=== PATIENT | male | born 1935 | race Caucasian/White ===

== ENCOUNTER 2017-08-07 06:36 | Observation (INO) | payer OTHER ==
[2017-08-07] VITALS (13 sets, daily range): BP systolic 116–148; BP diastolic 56–83
[~2017-08-07] VITALS: Ht 188 cm; Wt 83.1 kg
--- NOTE | ~2017-08-07 | H ---
[facility] [place] [address] HISTORY AND PHYSICAL Name: LORRIE WASHBURN Room #: 210-P [facility] Jennifer Holden#: [id number] Admission: 08/07/17 Attend Phys: Rosendo Tirana MD, Discharge: Date of : 36 Report #: [id number] THIS REPORT FOR: //name// CC: ELOISA physician/PCP Rosendo Triana DATE OF SERVICE: 08/07/2017 HISTORY OF PRESENT ILLNESS: The patient is an 82-year-old male known to myself. He was being considered for an elective admission for cardiac catheterization. During the night, developed some chest pressure, heaviness, congestion, which was very confusing as whether this was an anginal equivalent. He has had a prior bypass surgery in 1995 in [place] and recently moved here. He had diagonal stent placed at some point and then restenosis of an SVG to the RCA stent in 2008 and then redilated in 2014. There was also a CHAN to an LAD, which was intact to a diagonal and [place], filled the diagonal and the [place] circumflex from some limited records. Ejection fraction was near normal, mild aortic valve stenosis, there is question whether it could be a bicuspid valve, seems not likely at his age. In any event, he took some Robitussin DM and then developed significant left flank pain during the night consistent with a kidney stone, he has had a recent kidney stone. There has not been any imelda hematuria. He is afebrile. LABORATORY DATA: His lab work we ran stat, has a creatinine of 1.1, potassium 4.2. H and H is 14 and 41, white cell count is 8.4 and platelets 175. Liver function tests were normal. I have started IV fluids. He is in a moderate amount of distress. No pain medications yet. We are awaiting chest x-ray and CT noncontrast abdomen and pelvis, renal stone protocol. He had an abnormal nuclear stress test, the reason for that was we are attempting to repeat or obtain a cardiac catheterization. MEDICATIONS: Baby aspirin, Celebrex, Plavix 75, CoQ10, lisinopril, levothyroxine, metoprolol 25, multivitamins, pravastatin 40. PAST MEDICAL HISTORY: Positive for coronary artery disease with bypass surgery and subsequent stent placement to an LAD and SVG to RCA, last intervention 2014, preserved LV function. Hypertension, hypercholesterolemia, degenerative joint disease, paroxysmal atrial fibrillation, left carotid bruit, diabetes. FAMILY HISTORY: Mother had kidney failure, his father had coronary artery disease prematurely. He is accompanied by his son who lives here. SOCIAL HISTORY: He has never smoked, couple of drinks a week. He recently moved here from [place]. He is independent. He is retired. ALLERGIES: ZETIA. [facility] [address] [place] [address] HISTORY AND PHYSICAL Name: LORRIE WASHBURN Room #: 210-P [facility] Jennifer Holden#: [id number] Admission: 08/07/17 Attend Phys: Rosendo Triana MD, Discharge: Date of : 36 Report #: [id number] PHYSICAL EXAMINATION: VITAL SIGNS: Pulse is 50s, blood pressure 136/80. HEENT: Eyes reveal xanthelasmas. Pharynx is clear. NECK: Shows preserved upstrokes without JVD or bruits. LUNGS: Clear. CARDIOVASCULAR: Regular rate and rhythm, S1, S2, bradycardic, there is a systolic ejection murmur at upper right sternal border. ABDOMEN: Soft. No HSM or abdominal bruit. EXTREMITIES: Reveal trace of edema. Pulses were intact. NEUROLOGIC: Nonfocal. SKIN: Warm and dry without xanthoma or ulcer. MUSCULOSKELETAL: No gross joint deformity. ASSESSMENT: 1. Coronary artery disease with abnormal nuclear test and now recurrent chest pain, currently resolved. 2. Severe left flank pain consistent with possible acute nephrolithiasis, history of kidney stone. 3. Hypertension. 4. Hypercholesterolemia. 5. Diabetes. 6. Degenerative joint disease. 7. Mild aortic valve stenosis. RECOMMENDATIONS AND PLAN: We will await the CT scan, IV fluids, pain control, admit to the CCU, rule out an ischemic event. Initial troponin was negative. We will have Urology consult. Would hold off on cardiac catheterization until we can delineate the etiology of this left flank pain. He is pain free at this time, cardiac lovett or chest pain lovett. There is a moderate area of reversible ischemia in the mid apical and anterior apical ventricle consistent with his LAD distribution, so question of a CHAN to LAD area. We will await Urology consult and CT results. <ELECTRONICALLY SIGNED> By: Rosendo Triana MD, FACC 08/08/17 0844 0809 0904 Rosendo Triana MD, FACC /nt
--- NOTE | ~2017-08-07 | EKG ---
[address] [address] ELECTROCARDIOGRAM REPORT Name: LORRIE WASHBURN Room #: 210-P [facility] M.R.#: [id number] Admission: 08/07/17 Attend Phys: Rosendo Triana MD, Discharge: Date of : 36 Report #: [id number] THIS REPORT FOR: //name// [facility] Test Date: 2017-08-07 Test Time: 12:41:11 Pat Name: LORRIE WASHBURN Department: Room: 210 P Gender: M Chief Yeoman: Mindi PERRY : 1935 Requested By: Rosendo Triana Order Number: [id number] MD: Chaka Hamilton Measurements Intervals [place] Rate: 68 P: 69 [place]: 195 QRS: 158 QRSD: 146 T: -28 QT: 454 QTc: 483 Interpretive Statements Sinus rhythm lbbb Anterior infarct, old Electronically Signed On 08-07-2017 22:38:35 MARINE STRUCTURAL WELDER by Chaka Hamilton [email or web address] <ELECTRONICALLY SIGNED> By: Chaka Hamilton MD 08/07/17 2238 1241 1241 Chaka Hamilton MD /PARMJIT
--- NOTE | ~2017-08-07 | CATHLAB ---
[facility] [address] [place] [address] INVASIVE PROCEDURE REPORT Name: LORRIE WASHBURN Room #: 210-P [facility] .R.#: [id number] Admission: 08/07/17 Attend Phys: Rosendo Triana, Discharge: 08/08/17 Date of : 36 Date of Service: 08/08/17 1125 Report #: [id number] THIS REPORT FOR: //name// APPROVED REPORT Patient Details Patient Status: Out-Patient Room #: The patient is a 82 year-old male Event Personnel Rosendo Triana Manufacturing Lab Technician, Ta Duncan RN, Cora Nichole CVT Monitor, Kristen Velasquez Scrub Procedures Performed Art Access - R femoral artery* Hemostasis w/ Mynx Left Heart Cath Coronaries, Bypass Grafts 1953998 LHCCORCABG Abdominal Aortography 669052 JOVON Place w/wo Plasty Single LAD 274376 61047 Initial Mod Sed Same Phys/QHP Gr5y 887163 29203 Mod Sed Same Phys/QHP Ea 910731 Procedure Narrative The patient was brought electively to the Cardiac Catheterization Laboratory and was prepped and draped in a sterile manner. The Right Groin^ was infiltrated with subcutaneous anesthesia. A PINNACLE 6FR Sheath #[id number] sheath was inserted into the RFA 6fr^. Coronary angiography was performed using coronary diagnostic catheters. The right coronary system was accessed and visualized with a JR 4 catheter. The left coronary system was accessed and visualized with a JL 4 catheter. The left ventricle was accessed and visualized with a Pigtail catheter. Left ventricular/Aortic Valve gradient assessed via catheter pullback. Left ventriculogram was performed in 30 degree projection. An aortogram of the abdominal aorta was performed. Closure device was deployed with a 6 Fr Mynx. The patient tolerated the procedure well and there were no complications associated with the procedure. There was no hematoma. Intraoperative Conscious Sedation Sedation start time: 08:47 Case end Time: 09:34 Fentanyl 50.0 mcg Versed 1.5 mg Fluoro Time: 11.50 minutes Dose: DAP 1682.00 cGycm2 1682 mGy Contrast Type and Amount: Omnipaque 225 ml [facility] [address] [place] [address] INVASIVE PROCEDURE REPORT Name: LORRIE WASHBURN Room #: 210-P [facility] ..#: [id number] Admission: 08/07/17 Attend Phys: Rosendo Triana, Discharge: 08/08/17 Date of : 36 Date of Service: 08/08/17 1125 Report #: [id number] Hemodynamics The aortic pressure is 177/82 mmHg with a mean of 89 mmHg. The left ventricular pressure is 177/5 mmHg with a mean of mmHg. The left ventricular end diastolic pressure is 19 mmHg. PCI Technique Lesion Anticoagulation was achieved with Heparin. Percutaneous coronary intervention was performed on the proximal left anterior descending artery segment. A LAUNCHER 6FR EBU 4 #[id number] Guide Catheter was used to engage the Left Main ostium. A Luge Wire .014 x 182CM #[id number] Interventional Guidewire was used to cross the lesion. BALLOON DILATION A Balloon catheter Mozec NC 2.25 x 8 was inserted and inflated up to 15.00atm for 26seconds. Additional Inflation: 16.00atm for 18seconds. STENT DEPLOYMENT A drug-eluting stent RESOLUTE OTW 2.5 X 8 #[id number] was inserted and inflated up to 14.00atm for 24seconds. Additional Inflation: 16.00atm for 17seconds. Conclusion #1 successful PTCA stent drug-eluting of the ostial LAD 95% to 20% filling extensive diagonal system. Mid LAD occludes is filled via the CHAN graft #2 CHAN to LAD is intact with minimal irregularity mild diseases this extends to the apex #3 circumflex OM is nondominant moderate size distribution with mild irregularities in proximal calcification. No high-grade disease noted #4 king salmon right coronary dominant occludes in the mid vessel at prior stents. #5 SVG to PDA is intact distal stents are noted eccentric 70-75% lesion distal to the PDA stents after the anastomosis and proximal to the bifurcation of follow this closely (this was not ischemic on the nuclear test) #6 normal left ventricular size with subtle anterior lateral wall leg EF 50-55% #7 abdominal aorta is mildly ectatic no aneurysm left renal artery has a 4050% eccentric lesion single right renal artery widely patent Recommendations plan continue aggressive risk factor modification [facility] [address] [place] [address] INVASIVE PROCEDURE REPORT Name: LORRIE WASHBURN Room #: 210-P [facility] M.R.#: [id number] Admission: 08/07/17 Attend Phys: Rosendo Triana, Discharge: 08/08/17 Date of : 36 Date of Service: 08/08/17 1125 Report #: [id number] dual antiplatelet therapy indefinitely. Has been previously on. No lifting for 48 hours to line tub [facility] or [facility] for a week signed <ELECTRONICALLY SIGNED> By: Rosendo Triana MD, FACC 08/08/17 1125 1125 112 Rosendo Triana MD, FACC /INF
--- NOTE | ~2017-08-07 | EKG ---
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: GR : 1935 Requested By: Rosendo Triana Order Number: [id number] MD: Ritchie Mullins Measurements Intervals [place] Rate: 51 P: 76 ID: 199 QRS: 159 QRSD: 146 T: 61 QT: 460 QTc: 424 Interpretive Statements Sinus rhythm Left bundle branch block Compared to ECG 08/07/2017 12:41:11 No significant change was found Electronically Signed On 08-08-2017 8:10:58 VEHICLE MAINTENANCE SUPERVISOR by Ritchie Mullins [email or web address] <ELECTRONICALLY SIGNED> By: Ritchie Mullins MD, [facility] 08/08/17 0810 2 2 Ritchie Mullins MD, [facility] /EPI
--- NOTE | ~2017-08-07 | EKG ---
[place] [address] [address] [facility] [place] [address] ELECTROCARDIOGRAM REPORT Name: LORRIE WASHBURN Room #: REG [facility]#: [id number] Admission: 08/07/17 Attend Phys: Rosendo Triana MD, Discharge: Date of : 36 Report #: [id number] THIS REPORT FOR: //name// [facility] Test Date: 2017-08-07 Test Time: 07:14:58 Pat Name: LORRIE WASHBURN Department: Room: Gender: M Supervisor Sunglasses: : 1935 Requested By: Rosendo Triana Order Number: [id number] MD: Ritchie Mullins Measurements Intervals [place] Rate: 54 P: 26 IN: 192 QRS: 195 QRSD: 146 T: 78 QT: 442 QTc: 419 Interpretive Statements Sinus bradycardia Left bundle branch block Baseline wander in lead(s) V3 No previous ECG available for comparison Electronically Signed On 08-07-2017 9:10:43 DELIVERY MERCHANDISER by Ritchie Mullins [email or web address] <ELECTRONICALLY SIGNED> By: Ritchie Mullins MD, [facility] 08/07/17909 3 3 Ritchie Mullins MD, FACC /EPI
--- NOTE | ~2017-08-07 | D ---
[facility] [place] [address] DISCHARGE SUMMARY Name: LORRIE WASHBURN Room #: 210-P [facility] Jennifer Holden#: [id number] Admission: 08/07/17 Attend Phys: Rosendo Triana MD, Discharge: Date of : 36 Report #: [id number] THIS REPORT FOR: //name// CC: [facility] physician/PCP Rosendo Triana [facility] COURSE: The patient is an 82-year-old male who was going to be admitted for elective catheterization, developed some acute left flank pain the night prior to the admission consistent with prior kidney stone which he had had. I had initially held off on the procedure and had urology evaluation, CT noncontrast looking for renal stone, there was no findings. Also had some recurrent chest pain which had been stable angina and had some rest pain that night with flank pain. She was taken to the catheterization lab eventually, which had a high grade subtotal proximal LAD, which then occluded. The CHAN to the LAD was intact, but the LAD proximally was filling an extensive diagonal system and this was not protected. I dilated and stented just off of the left main with a 2.5 x 9 Resolute drug-eluting stent 2.8 mm. I should note the [place] circumflex was intact, not bypassed and then the graft to the PDA was intact with stents patent and then distal to the stents in the PDA was a 70% lesion which we will follow and may need intervention at some point, but was not showing evidence of inferior wall ischemia. The nuclear test had revealed extensive anterior lateral wall, which was consistent with the diagonal system, which was stented. He will be discharged to home on his home medications. He is up, he feels well. Troponin was 0.2. No change in creatinine. Hemoglobin was stable. He is up and ambulating without any issues. He will be discharged to home. He will be discharged aspirin and Plavix, Celebrex p.r.n., CoQ10, levothyroxine, lisinopril 5, metoprolol 25, multivite and pravastatin 40. No MRI or dental work for 3 months. No lifting for 48 hours. DISCHARGE DIAGNOSES: 1. Coronary artery disease with successful stent placement, stated above, prior bypass. 2. Hypertension. 3. Hypercholesterolemia. 4. Diabetes. 6. Paroxysmal atrial fibrillation. I should note he is also on insulin therapy for his diabetes. He has moved here from [place] recently. He has been referred to Dr. Ascencio. By: 0818 0849 Rosendo Triana MD, FACC /nt
[~2017-08-07 06:36] MED LIST: ASPIR 8181 MG PO; CELEBREX 200 M200 M1 PO; CENTRUM SILVER1 EAC4 PO; CO-ENZYME Q-1010 MG PO; LEVOXYL137 MCG PO; LISINOPRIL5 MG PO; NITROGLYCERIN0.4 MG PO; PLAVIX 75 MG TA75 M1 PO; PRAVACHOL40 MG PO; TOPROL XL25 MG PO
[2017-08-07 07:25] LABS: HEMATOCRIT 41.6 % (42.0-52.0); HEMOGLOBIN 14.1 gm/dL (14.0-18.0); MCH 31.8 pg (26.0-34.0); MCV 93.4 fL (80.0-100.0); RBC 4.45 mil/uL (4.50-6.00); RDW 13.3 % (10.5-14.5); WBC 8.4 thou/uL (4.0-11.0)
[2017-08-07 07:34] LABS: CALCIUM 9.2 mg/dL (8.5-10.1); CREATININE 1.1 mg/dL (0.7-1.3); POTASSIUM 4.2 mmol/L (3.5-5.1)
[2017-08-07 07:50] LABS: ALBUMIN 3.8 g/dL (3.4-5.0); TOTAL BILIRUBIN 0.9 mg/dL (<0.1-1.0); TOTAL PROTEIN 6.8 g/dL (6.4-8.2)
[2017-08-07 08:54] LABS: URINE BILIRUBIN NEGATIVE (Negative); URINE BLOOD TRACE (Negative); URINE COLOR YELLOW; URINE GLUCOSE-RANDOM* NEGATIVE (Negative); URINE KETONES NEGATIVE (Negative); URINE NITRITE NEGATIVE (Negative); URINE PROTEIN (DIPSTICK) NEGATIVE (Negative); URINE UROBILINOGEN 0.2 E.U./dl (0.2-1.0)
[2017-08-07] MEDS ORDERED: ASPIRIN325 PO (17:04)
[2017-08-08 03:43] VITALS: BP 144/78
[2017-08-08 04:03] LABS: HEMATOCRIT 40.6 % (42.0-52.0); HEMOGLOBIN 13.9 gm/dL (14.0-18.0); MCH 31.9 pg (26.0-34.0); MCHC 34.1 g/dL (28.0-37.0); MCV 93.5 fL (80.0-100.0); RBC 4.34 mil/uL (4.50-6.00); RDW 13.2 % (10.5-14.5); WBC 10.5 thou/uL (4.0-11.0)
[2017-08-08 04:20] LABS: ANION GAP 8 mmol/L (7-16); BUN 19 mg/dL (7-18); CALCIUM 8.7 mg/dL (8.5-10.1); CHLORIDE 105 mmol/L (98-107); CHOLESTEROL 140 mg/dL (<200); CO2 27 mmol/L (21-32); CREATININE 1.2 mg/dL (0.7-1.3); GLUCOSE 140 mg/dL (74-106); HDL CHOLESTEROL 42 mg/dL (>40); LDL CHOLESTEROL 78 mg/dL (<100); POTASSIUM 4.2 mmol/L (3.5-5.1); SODIUM 140 mmol/L (136-145); TC:HDL 3.3 Ratio (Not establshd); TRIGLYCERIDE 101 mg/dL (<150); TROPONIN-I 0.26 ng/mL (<0.06); VLDL 20 mg/dL (<40)
[2017-08-08 04:22] LABS: SERUM ASSESSMENT Clear
[2017-08-08 07:37] VITALS: BP 137/77
[2017-08-08 08:56] VITALS: BP 137/77
== END 2017-08-08 10:35 | disposition home or self-care (01) ==
LOC: CATH 06:36 → 2N 10:18 → CATH 12:48 → 2N 08-08 10:35
PROVIDERS: Internal Medicine Cardiovascular Disease
DX: I25.10 Atherosclerotic heart disease of native coronary artery without angina pectoris (principal); R94.39 Abnormal result of other cardiovascular function study; R10.9 Unspecified abdominal pain; I10 Essential (primary) hypertension; E78.00 Pure hypercholesterolemia, unspecified; E11.9 Type 2 diabetes mellitus without complications; M19.90 Unspecified osteoarthritis, unspecified site; I35.0 Nonrheumatic aortic (valve) stenosis; I48.0 Paroxysmal atrial fibrillation; Z95.1 Presence of aortocoronary bypass graft; Z79.4 Long term (current) use of insulin

== ENCOUNTER 2017-10-18 15:10 | Observation (INO) | payer OTHER ==
[~2017-10-18] VITALS: Ht 188 cm; Wt 83.9 kg
--- NOTE | ~2017-10-18 | EKG ---
[address] [address] ELECTROCARDIOGRAM REPORT Name: LORRIE WASHBURN Room #: 170-11 [facility] M..#: [id number] Admission: 10/18/17 Attend Phys: Quentin Shipman MD Discharge: Date of : 36 Report #: [id number] THIS REPORT FOR: //name// [facility] ED Test Date: 2017-10-18 Test Time: 15:16:48 Pat Name: LORRIE WASHBURN Department: Room: 170 Gender: M Licensed Marriage And Family Therapist: THEO : 1935 Requested By: Shai Alba Order Number: [id number] MD: Chaka Hamilton Measurements Intervals [place] Rate: 59 P: 42 [place]: 202 QRS: 219 QRSD: 142 T: 100 QT: 408 QTc: 405 Interpretive Statements Sinus rhythm Lbbb Electronically Signed On 10-18-2017 16:54:25 DIRECTOR OF MOBILE MARKETING by Chaka Hamilton [email or web address] <ELECTRONICALLY SIGNED> By: Chaka Hamilton MD 10/18/17 1654 1516 1516 Chaka Hamilton MD /PARMJIT
--- NOTE | ~2017-10-18 | HC ---
[facility] [place] [address] CONSULTATION Name: LORRIE WASHBURN Room #: 444-P [facility] Holden#: [id number] Admission: 10/18/17 Attend Phys: Quentin Shipman MD Discharge: 10/19/17 Date of : 36 Report #: [id number] THIS REPORT FOR: //name// CC: EUSEBIO Shipman HISTORY OF PRESENT ILLNESS: The patient is an 82-year-old male, he is well known to myself. He recently moved here from [place]. However, I did place an ostial LAD stent in July of this last year, just 2 months ago to his ostial LAD. He had mild circ disease, otherwise LAD disease of a moderate nature and then a vein graft to the distal right PDA that had a 70% eccentric distal lesion, which we have been following. He has actually done much better in the last 2 months since the stent was placed in the ostial LAD. No recurrent chest pain or pressure. He had an episode while walking today, walking his dog and he was not really exerting much he stated, but it was described as a sharp pain, which radiated to the side of his neck. This was not consistent with his prior anginal pain. He then had some lightheadedness and some slight ataxia, although he was a very poor historian regarding this. Did not really sound vertiginous. He has recently completed a 3-week course of antibiotics for some recurrent cough, cold, and congestion and there has been a fair amount of coughing. This is a first real exertion he has done in a while. He is pain free tonight. His troponin is negative. CURRENT MEDICATIONS: Baby aspirin, Celebrex, Plavix, CoQ10, levothyroxine, lisinopril 5, Toprol 25, MultiVites, and pravastatin 40. PAST MEDICAL HISTORY: Positive for coronary artery disease, prior bypass surgery in 2003, stent placement in 2008, stent to the right in 2014 and then most recently an ostial LAD stent 2 months ago. Also, he has polymyalgia rheumatica, history of ischemic colitis, history of thyroid cancer, hypertension, hypercholesterolemia, mild carotid disease, Doppler was done in June; and DJD. SOCIAL HISTORY: No current alcohol or tobacco. He is . He lives here independently. He has three children. He is retired. FAMILY HISTORY: Mother had kidney failure. Father had some heart failure, but no real premature disease. REVIEW OF SYSTEMS: Essentially negative except for some occasional arthritis pains and some nocturia. His EKG reveals sinus bradycardia, delayed R-waves, intraventricular conduction, incomplete left bundle essentially. LABORATORY WORK: Sodium 140, potassium 4.4, and creatinine 1.2. Troponin is negative. H and H is 14 and 41, white count 8.2. A CT of the head is [address] [address] CONSULTATION Name: LORRIE WASHBURN Room #: 444-P [facility] Jennifer MFermin#: [id number] Admission: 10/18/17 Attend Phys: Quentin Shipman MD Discharge: 10/19/17 Date of : 36 Report #: [id number] unremarkable. When he clarify, he has recent carotid Dopplers, which have less than 40% bilaterally. This does not need to be repeated. PHYSICAL EXAMINATION: GENERAL: Pleasant and alert. VITAL SIGNS: Blood pressure was 110/60, pulse was 60 and regular. HEENT: Eyes showed xanthelasmas. Pharynx was clear. NECK: Shows preserved upstrokes without JVD or bruits. LUNGS: Clear. CARDIAC: Regular rate and rhythm S1, S2, without significant murmur or gallop. ABDOMEN: Soft. No HSM or abdominal bruit. EXTREMITIES: Show no edema. Distal pulses were intact. NEUROLOGIC: Nonfocal. SKIN: Warm and dry without xanthoma or ulcer. MUSCULOSKELETAL: Generalized arthritic changes. ASSESSMENT: 1. Chest pain, negative troponin. I suspect this is noncardiac, underlying coronary disease. He was scheduled fairly soon for nuclear stress testing, we will proceed with that in the a.m. The dizziness and vertigo essentially resolved. Carotids were widely patent 3 months ago in the office, I suspect may have been some transient inner ear hypotension. His pressure was 102, I would hold the TAMEKA inhibitor for now. History of hypertension and history of hypercholesterolemia. 2. Paroxysmal atrial fibrillation, although there has been no recent recurrence and he is not anticoagulated. 3. History of coronary artery bypass graft in 2003. 4. Diet controlled diabetes. 5. Hypothyroidism. 6. Remote history of deep venous thrombosis. RECOMMENDATIONS AND PLAN: I would not perform serial enzymes, this does not appear at this point they would turn positive. I would proceed with a nuclear stress test in the morning. Carotid Dopplers were done 3 months ago, did not need to repeat. Apparently, there has been an MRI of the head done that is pending. He is alert, oriented and completely asymptomatic at this time. I would hold the TAMEKA inhibitor and may need to back down based on the fact that he has had some transient hypotension. Also, if there is some question of some recurrent bronchitis or not incompletely treated viral syndrome. Although, clinically he does not appear to be sick and the chest x-ray was reviewed, which shows no concerning findings. I suspect we can proceed with nuclear testing, we will discuss with primary, if that is negative, I suspect we could discharge shortly thereafter. [facility] [address] [place] [address] CONSULTATION Name: LORRIE WASHBURN Room #: 444-P [facility] Holden#: [id number] Admission: 10/18/17 Attend Phys: Quentin Shipman MD Discharge: 10/19/17 Date of : 36 Report #: [id number] Thank you for asking me to assist in the care of this patient. <ELECTRONICALLY SIGNED> By: Rosendo Triana MD, FACC 10/25/17 2139 1943 0827 Rosendo Triana MD, FACC /nt
[~2017-10-18 15:10] MED LIST changes: +ASPIRIN325 PO
[2017-10-18 15:12] VITALS: BP 102/62
[2017-10-18 15:58] LABS: ABSOLUTE NEUTROPHILS 5.6 thou/uL (1.4-8.2); BASOPHILS 0.9 % (0.0-2.0); EOSINOPHILS 3.3 % (0.0-3.0); HEMATOCRIT 40.6 % (42.0-52.0); LYMPHOCYTES 17.4 % (24.0-44.0); MCH 31.9 pg (26.0-34.0); MCHC 34.5 g/dL (28.0-37.0); MCV 92.4 fL (80.0-100.0); MONOCYTES 9.9 % (1.0-8.0); PLATELET COUNT 195 thou/uL (150-400); POLYS 68.5 % (36.0-66.0); RBC 4.39 mil/uL (4.50-6.00); RDW 13.2 % (10.5-14.5); WBC 8.2 thou/uL (4.0-11.0)
[2017-10-18 16:09] LABS: ANION GAP 8 mmol/L (7-16); BUN 25 mg/dL (7-18); CHLORIDE 106 mmol/L (98-107); CO2 26 mmol/L (21-32); CREATININE 1.2 mg/dL (0.7-1.3); GLUCOSE 104 mg/dL (74-106); POTASSIUM 4.4 mmol/L (3.5-5.1); SODIUM 140 mmol/L (136-145)
[2017-10-18 16:18] LABS: ALBUMIN 3.6 g/dL (3.4-5.0); SGOT 42 U/L (15-37); SGPT 55 U/L (30-65); TOTAL BILIRUBIN 0.6 mg/dL (<0.1-1.0); TOTAL PROTEIN 6.4 g/dL (6.4-8.2); TROPONIN-I < 0.04 ng/mL (<0.06)
[2017-10-18] MEDS ORDERED: PRINIVIL20 MG PO (16:30)
[2017-10-18] MEDS ORDERED: SYNTHROID150 MCG PO (16:30)
[2017-10-18] MEDS ORDERED: GLUCOSAMINE HC500 MG PO (16:31)
[2017-10-18] MEDS ORDERED: CO Q-10100 MG PO (16:31)
[2017-10-18 17:21] VITALS: BP 129/60
[2017-10-18 17:29] VITALS: BP 147/64
[2017-10-18 19:38] VITALS: BP 161/75
[2017-10-19 04:14] LABS: HEMATOCRIT 40.2 % (42.0-52.0); HEMOGLOBIN 13.9 gm/dL (14.0-18.0); MCH 32.1 pg (26.0-34.0); MCHC 34.7 g/dL (28.0-37.0); MCV 92.6 fL (80.0-100.0); RBC 4.34 mil/uL (4.50-6.00); RDW 13.1 % (10.5-14.5); WBC 8.4 thou/uL (4.0-11.0)
[2017-10-19 04:18] VITALS: BP 119/63
[2017-10-19 04:26] LABS: ANION GAP 9 mmol/L (7-16); BUN 20 mg/dL (7-18); CALCIUM 8.9 mg/dL (8.5-10.1); CHLORIDE 107 mmol/L (98-107); CO2 28 mmol/L (21-32); CREATININE 1.2 mg/dL (0.7-1.3); GLUCOSE 105 mg/dL (74-106); POTASSIUM 4.2 mmol/L (3.5-5.1); SODIUM 144 mmol/L (136-145); TROPONIN-I < 0.04 ng/mL (<0.06)
[2017-10-19 08:04] VITALS: BP 149/75
[2017-10-19 10:36] VITALS: BP 149/75
[2017-10-19 14:14] VITALS: BP 149/75
== END 2017-10-19 15:00 | disposition home or self-care (01) ==
LOC: ER 15:10 → EROBS 16:37 → 4S 16:37
PROVIDERS: Emergency Medicine; Hospitalist; Physician Assistant
DX: I25.10 Atherosclerotic heart disease of native coronary artery without angina pectoris (principal); I10 Essential (primary) hypertension; E78.5 Hyperlipidemia, unspecified; E11.9 Type 2 diabetes mellitus without complications; I48.0 Paroxysmal atrial fibrillation; M19.90 Unspecified osteoarthritis, unspecified site; E89.0 Postprocedural hypothyroidism; R42 Dizziness and giddiness; Z86.718 Personal history of other venous thrombosis and embolism; Z95.5 Presence of coronary angioplasty implant and graft; Z95.1 Presence of aortocoronary bypass graft; E78.00 Pure hypercholesterolemia, unspecified; Z85.850 Personal history of malignant neoplasm of thyroid

== ENCOUNTER → 2019-06-12 | Outpatient (CLI) | payer OTHER ==
[~2019-06-12] MED LIST changes: +CO Q-10100 MG PO; +GLUCOSAMINE HC500 MG PO; +PRINIVIL20 MG PO; +SYNTHROID150 MCG PO
== END ==
LOC: NUC 07:22
DX: R07.9 Chest pain, unspecified (principal); I25.10 Atherosclerotic heart disease of native coronary artery without angina pectoris; I48.91 Unspecified atrial fibrillation; E11.9 Type 2 diabetes mellitus without complications; I10 Essential (primary) hypertension; E78.5 Hyperlipidemia, unspecified; Z79.899 Other long term (current) drug therapy

== ENCOUNTER 2019-07-01 06:00 | Observation (INO) | payer OTHER ==
[~2019-07-01] VITALS: Ht 185.4 cm; Wt 84.9 kg
[2019-07-01 07:00] VITALS: BP 146/84
[2019-07-01] MEDS ORDERED: NITROGLYCERIN0.4 MG SUBLING (07:12)
[2019-07-01] MEDS ORDERED: XARELTO20 MG PO (07:12)
[2019-07-01 07:15] LABS: HEMATOCRIT 33.6 % (42.0-52.0); MCH 30.9 pg (26.0-34.0); MCHC 32.8 g/dL (28.0-37.0); RBC 3.57 mil/uL (4.50-6.00); RDW 14.5 % (10.5-14.5); WBC 7.5 thou/uL (4.0-11.0)
[2019-07-01 07:34] LABS: CALCIUM 8.8 mg/dL (8.5-10.1); CREATININE 1.2 mg/dL (0.7-1.3)
--- NOTE | 2019-07-01 08:05 | EKG ---
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 <ELECTRONICALLY SIGNED> By: Ritchie Mullins MD, [facility] 07/01/1904 3 3 Ritchie Mullins MD, [facility] /EPI
[2019-07-01 10:42] VITALS: BP 143/94
[2019-07-01 11:52] VITALS: BP 134/91
--- NOTE | 2019-07-01 13:15 | NUR ---
ASSUMED CARE OF PT AT 11:50, REC REPORT AROUND 1215, VS DONE ORDERED, SEE DATA FLOW SHEET, R GROIN SITE CDI NO HEMATOMA, SOFT, NO DRAINAGE OF BLOOD. PT DENIES ANY NEEDS/PAIN AT THIS TIME. A&0X4, IS NOT IMPULSIVE. NO ORDERS ON HOW LONG PT IS TO HAVE BEDREST, RN HERE ON THE FLOOR WHO GAVE ME REPORT STATED ROUTE AGENT STATED THREE HOURS WITH HEMOSTASIS ACHIEVED AT 0930. HE WAS UP HAVING FINISHED HIS LUNCH, URINAL AT BEDSIDE. AFIB ON MONITOR, ONE STRIP LOOKED LIKE ST WITH REGULAR RATE AND PWAVES YET NOW AFIB. WILL CONTINUE W/VS HOURLY X 4 AND WALK WITH PT TO RESTROOM WHEN HE CALLS OUT. GAVE INSTRUCTION, POSSIBLY REDUNDANT, ON STILL COMPRESSING SITE WITH HIS NEW COUGH. STATES HE DIDN'T HAVE IT PRIOR TO PROCEDURE. ENCOURAGED HYDRATION. IVF RUNNING. SON SLATED TO RETURN.
[2019-07-01 15:39] VITALS: BP 136/87
--- NOTE | 2019-07-01 17:29 | CATHLAB ---
[facility] [address] [place] [address] INVASIVE PROCEDURE REPORT Name: LORRIE WASHBURN Room #: 214-P [facility] IN M.R.#: [id number] Admission: 07/01/19 Attend Phys: Rosendo Triana, Discharge: Date of : 37 Report #: [id number] THIS REPORT FOR: //name// APPROVED REPORT Study performed: 07/01/2019 07:21:44 Patient Details Patient Status: Out-Patient Room #: The patient is a 83 year-old male Event Personnel Rosendo Triana Lap Layer, Ta Duncan RN, Lorrie Noriega Monitor, Ruth Irene RTR Scrub, Brandi Samuel RN clinical data management manager Performed Left Heart Cath Coronaries, Bypass Grafts [id number] LHCCORCABG JOVON Revasc Graft Single RCA C9604 SVGREVSING Indication Chest pain Procedure Narrative The Right Groin^ was infiltrated with 1% Lidocaine subcutaneous anesthesia. A PINNACLE 6FR Sheath #[id number] sheath was inserted into the RFA^. Coronary angiography was performed using coronary diagnostic catheters. The right coronary system was accessed and visualized with a JR4 catheter. The left coronary system was accessed and visualized with a JL4 catheter. The left ventricle was accessed and visualized with a PIGTAIL catheter. Left ventricular/Aortic Valve gradient assessed via catheter pullback. Left ventriculogram was performed in 30 degree projection. Closure device was deployed with a 6 Fr MYNXGRIP 6/7F #[id number]. The patient tolerated the procedure well and there were no complications associated with the procedure. There was no hematoma. NATASHAB/DUSTIN VISUALIZED Intraoperative Conscious Sedation Sedation start time: 8.44 Case end Time: 9.41 Fentanyl 100 mcg Versed 1 mg Fluoro Time: 8.58 minutes Dose: DAP 13552.00 cGycm2 1504 mGy Contrast Type and Amount: Visipaque 180 ml [facility] [place] [address] INVASIVE PROCEDURE REPORT Name: LORRIE WASHBURN Room #: 214-P [facility] IN M.R.#: [id number] Admission: 07/01/19 Attend Phys: Rosendo Triana, Discharge: Date of : 37 Report #: [id number] Hemodynamics The aortic pressure is 136/74 mmHg with a mean of 87 mmHg. The left ventricular pressure is 135/9 mmHg with a mean of mmHg. The left ventricular end diastolic pressure is 22 mmHg. There was no gradient across the aortic valve upon pullback. Pullback from the left ventricle to the aorta revealed no gradient across the aortic valve. PCI Technique Lesion A LAUNCHER 6FR RCB #[id number] Guide Catheter was used to engage the ostium. A Luge Wire .014 x 182CM #[id number] Interventional Guidewire was used to cross the lesion. BALLOON DILATION A Balloon catheter Sprinter OTW 2.5 x 12 #[id number] was inserted and inflated up to 14atm for 28seconds. Additional Inflation: 16atm for 14seconds. STENT DEPLOYMENT A drug-eluting stent XIENCE PATSY RX 2.5 X 12 #[id number] was inserted and inflated up to 18atm for 26seconds. Additional Inflation: 20atm for 21seconds. PCI Technique Lesion 2 Percutaneous Coronary Intervention was performed on the Unspecified. Conclusion #1 successful PTCA stent of 8 PDA to 90% eccentric lesion through and SVG with placement of a 27 5 x 12 Patsy drug-eluting stent 0% residual #2 left main short free of disease giving rise to LAD and circumflex #3 LAD is occluded proximally. There is an ostial stent that fills a moderate diagonal system which remains patent the ostial stent 50% in-stent restenosis #4 CHAN to LAD is intact with minimal irregularity the LAD extends around the apex #5 circumflex OM is intact and mildly diseased. #6 SVG to the OM is occluded #7 [place] right coronary artery is occluded and filled via the vein graft to the PDA that was stented #8 normal left ventricular size and systolic function EF lower limits of normal 50% range Remissions and plan: Continue aggressive risk factor modification [address] [address] INVASIVE PROCEDURE REPORT Name: LORRIE WASHBURN Room #: 214-P [facility] IN M.R.#: [id number] Admission: 07/01/19 Attend Phys: Rosendo Triana, Discharge: Date of : 37 Report #: [id number] dual antiplatelet therapy. Patient hemodynamically stable transfer to the CCU to follow stent protocol. <ELECTRONICALLY SIGNED> By: Rosendo Triana MD, FACC 07/01/191728 28 28 Rosendo Triana MD, FACC /INF
[2019-07-01 20:21] VITALS: BP 147/84
[2019-07-02 04:04] LABS: ALBUMIN 3.1 g/dL (3.4-5.0); CALCIUM 8.5 mg/dL (8.5-10.1); CREATININE 1.1 mg/dL (0.7-1.3); POTASSIUM 3.9 mmol/L (3.5-5.1); TOTAL BILIRUBIN 1.3 mg/dL (<0.1-1.0); TOTAL PROTEIN 5.8 g/dL (6.4-8.2); TROPONIN-I 0.21 ng/mL (<0.06)
[2019-07-02 04:26] LABS: HEMATOCRIT 30.6 % (42.0-52.0); HEMOGLOBIN 10.2 gm/dL (14.0-18.0); MCH 30.8 pg (26.0-34.0); MCHC 33.3 g/dL (28.0-37.0); MCV 92.4 fL (80.0-100.0); RBC 3.31 mil/uL (4.50-6.00); WBC 6.7 thou/uL (4.0-11.0)
--- NOTE | 2019-07-02 05:08 | NUR ---
PT S/P CARDIAC CATH. ALERT AND ORIENTED. VITALS STABLE. DENIES N/V/D. RATED X 1 NONSTAINING CHEST PAIN OF LESS THAN 1/10. DID NOT NEED ANYTHING FOR PAIN. UP AD DEION, R GROIN SITE C/D/I. OTHER ASSESSMENTS DOCUMENTED. PT CURRENTLY STABLE. WILL CONTINUE WITH CURRENT CARE PLAN.
[2019-07-02 05:19] VITALS: BP 142/86
--- NOTE | 2019-07-02 07:44 | EKG ---
[address] [place] [address] ELECTROCARDIOGRAM REPORT Name: LORRIE WASHBURN Room #: 214-P 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 : 1935 Requested By: Gisselle Khan Order Number: [id number] MD: Ritchie Mullins Measurements Intervals [place] Rate: 68 P: [place]: QRS: 247 QRSD: 139 T: 88 QT: 453 QTc: 482 Interpretive Statements Atrial fibrillation Ventricular premature complex Left bundle-branch block Compared to ECG 07/01/2019 07:14:45 No significant change was found Electronically Signed On 07-02-2019 7:44:14 CDT by Ritchie Mullins [email or web address] <ELECTRONICALLY SIGNED> By: Ritchie Mullins MD, [facility] 07/02/19 0744 0 0 Ritchie Mullins MD, [facility] /EPI
--- NOTE | 2019-07-02 07:48 | NUR ---
ASSUMED CARE OF PT FOR DAY SHIFT, A&0X4, AMB INDEPENDENTLY, REPORTS OF A BOUT OF BURNING RATED 2/10 IN HIS CHEST MOMENTARILY. DENIES ANY NEEDS/PAIN AT THIS TIME. QUESTIONS ANSWERED RE: POSSIBLE D/C AND HOW THEY WORK. SON IN TOWN AND NEIGHBOR BOTH AVAILABLE TO PICK HIM UP FOR D/C. CARDIAC MONITORED, ROOM AIR. ENCOURAGED TO USE CALL LIGHT FOR ANY NEEDS. SEE SEPARATE INTERVENTIONS FOR ASSESSMENTS
[2019-07-02] MEDS ORDERED: CLOPIDOGREL75 MG PO (07:54)
[2019-07-02 08:36] VITALS: BP 100/57
[2019-07-02 08:41] VITALS: BP 100/57
== END 2019-07-02 09:56 | disposition home or self-care (01) ==
LOC: CATH 06:00 → EROBS 09:21 → 2N 10:36 → CATH 13:56 → ENTRNSPT 07-02 09:48 → EDTRNSPTSTS 07-02 09:50 → 2N 07-02 09:56
PROVIDERS: Nurse Practitioner Adult Health; ADMIT Internal Medicine Cardiovascular Disease
DX: I25.10 Atherosclerotic heart disease of native coronary artery without angina pectoris (principal); I10 Essential (primary) hypertension; E78.5 Hyperlipidemia, unspecified; I48.21 Permanent atrial fibrillation; I25.5 Ischemic cardiomyopathy; I70.1 Atherosclerosis of renal artery; I38 Endocarditis, valve unspecified; E78.00 Pure hypercholesterolemia, unspecified; Z88.8 Allergy status to other drugs, medicaments and biological substances; Z79.890 Hormone replacement therapy; Z79.899 Other long term (current) drug therapy

== ENCOUNTER 2019-08-31 16:45 | Emergency (ER) | payer OTHER ==
[~2019-08-31] VITALS: Ht 185.4 cm; Wt 81.7 kg
[~2019-08-31 16:45] MED LIST changes: +CLOPIDOGREL75 MG PO; +NITROGLYCERIN0.4 MG SUBLING; +XARELTO20 MG PO
[2019-08-31 17:04] LABS: ABSOLUTE NEUTROPHILS 3.8 thou/uL (1.4-8.2); BASOPHILS 0.7 % (0.0-2.0); EOSINOPHILS 4.8 % (0.0-3.0); HEMATOCRIT 35.2 % (42.0-52.0); HEMOGLOBIN 11.4 gm/dL (14.0-18.0); LYMPHOCYTES 21.2 % (24.0-44.0); MCH 28.7 pg (26.0-34.0); MCHC 32.5 g/dL (28.0-37.0); MCV 88.2 fL (80.0-100.0); MONOCYTES 8.2 % (1.0-8.0); PLATELET COUNT 204 thou/uL (150-400); POLYS 65.1 % (36.0-66.0); RBC 3.99 mil/uL (4.50-6.00); RDW 16.1 % (10.5-14.5); WBC 5.9 thou/uL (4.0-11.0)
[2019-08-31 17:27] LABS: ANION GAP 5 mmol/L (7-16); BUN 21 mg/dL (7-18); CHLORIDE 107 mmol/L (98-107); CO2 26 mmol/L (21-32); CREATININE 1.2 mg/dL (0.7-1.3); GLUCOSE 150 mg/dL (74-106); POTASSIUM 4.2 mmol/L (3.5-5.1); SODIUM 138 mmol/L (136-145); TROPONIN-I <0.06 ng/mL (<0.06)
[2019-08-31 17:48] LABS: INR 1.3; PROTIME 13.6 Seconds (9.3-11.4)
[2019-08-31 18:08] LABS: URINE BILIRUBIN NEGATIVE (Negative); URINE BLOOD TRACE (Negative); URINE CLARITY CLEAR; URINE COLOR YELLOW; URINE GLUCOSE-RANDOM* NEGATIVE (Negative); URINE KETONES NEGATIVE (Negative); URINE LEUKOCYTES-REFLEX NEGATIVE (Negative); URINE NITRITE-REFLEX NEGATIVE (Negative); URINE PROTEIN (DIPSTICK) 1+ (Negative); URINE SPECIFIC GRAVITY >= 1.030 (1.005-1.035)
[2019-08-31 18:23] LABS: BACTERIA-REFLEX 1-9 Few /HPF (None Seen); CASTS None Seen /LPF (None Seen); CRYSTALS None Seen /LPF (None Seen); SQUAMOUS 0-3 Few /LPF (0-3); URINE RBC 3-10 Few /HPF (0-2); URINE WBC-REFLEX 0-5 Rare /HPF (0-5)
[2019-08-31 19:10] VITALS: BP 139/75
--- NOTE | 2019-09-01 08:51 | EKG ---
[place] [address] [facility] [employer] [place] [address] ELECTROCARDIOGRAM REPORT Name: LORRIE WASHBURN [id number] Admission: 08/31/19 Attend Phys: Discharge: 08/31/19 Date of : 37 Report #: [id number] THIS REPORT FOR: //name// [facility] ED Test Date: 2019-08-31 Test Time: 16:44:19 Pat Name: LORRIE WASHBURN Department: Room: Gender: Reserve Operator: Daysi : 1935 Requested By: Alyssa Russell Order Number: [id number] MD: Ritchie Mullins Measurements Intervals [place] Rate: 72 P: [place]: QRS: 178 QRSD: 135 T: 28 QT: 435 QTc: 477 Interpretive Statements Atrial fibrillation Nonspecific intraventricular conduction delay Anterior infarct, old Compared to ECG 07/02/2019 07:21:05 Premature ventricular complexes are no longer present Electronically Signed On 09-01-2019 8:50:59 CANE PUSHER by Ritchie Mullins [email or web address] <ELECTRONICALLY SIGNED> By: Ritchie Mullins MD, [facility] 09/01/19 0850 1644 43 Ritchie Mullins MD, FACC /EPI
== END 2019-08-31 18:57 | disposition home or self-care (01) ==
LOC: ER 16:45
PROVIDERS: Nurse Practitioner
DX: R07.89 Other chest pain (principal); I48.91 Unspecified atrial fibrillation; I25.10 Atherosclerotic heart disease of native coronary artery without angina pectoris; I10 Essential (primary) hypertension; E78.5 Hyperlipidemia, unspecified; E11.9 Type 2 diabetes mellitus without complications; Z95.1 Presence of aortocoronary bypass graft; Z85.850 Personal history of malignant neoplasm of thyroid

== ENCOUNTER → 2019-10-30 | Outpatient (CLI) | payer OTHER | LOC: SJCVC 14:48 | DX: I45.10 Unspecified right bundle-branch block (principal); I48.91 Unspecified atrial fibrillation; I25.89 Other forms of chronic ischemic heart disease; R94.31 Abnormal electrocardiogram [ECG] [EKG]; I25.10 Atherosclerotic heart disease of native coronary artery without angina pectoris; E78.00 Pure hypercholesterolemia, unspecified; I10 Essential (primary) hypertension; E78.5 Hyperlipidemia, unspecified; Z85.850 Personal history of malignant neoplasm of thyroid; Z95.1 Presence of aortocoronary bypass graft ==

== ENCOUNTER → 2019-11-05 | Outpatient (CLI) | payer OTHER | LOC: SJCVCIMAG 11-04 08:32 | DX: I08.1 Rheumatic disorders of both mitral and tricuspid valves (principal); I25.810 Atherosclerosis of coronary artery bypass graft(s) without angina pectoris; I48.21 Permanent atrial fibrillation ==

== ENCOUNTER → 2020-07-01 | Outpatient (CLI) | payer OTHER | LOC: SJCVC 09:58 | PROVIDERS: ATTEND Internal Medicine Cardiovascular Disease | DX: I25.810 Atherosclerosis of coronary artery bypass graft(s) without angina pectoris (principal); I70.1 Atherosclerosis of renal artery; I36.1 Nonrheumatic tricuspid (valve) insufficiency; I34.0 Nonrheumatic mitral (valve) insufficiency; I10 Essential (primary) hypertension; I48.0 Paroxysmal atrial fibrillation; D68.59 Other primary thrombophilia; I42.9 Cardiomyopathy, unspecified; E78.00 Pure hypercholesterolemia, unspecified; R94.31 Abnormal electrocardiogram [ECG] [EKG]; I25.2 Old myocardial infarction; E11.9 Type 2 diabetes mellitus without complications; Z79.899 Other long term (current) drug therapy; Z82.49 Family history of ischemic heart disease and other diseases of the circulatory system; Z95.1 Presence of aortocoronary bypass graft ==

== ENCOUNTER → 2020-08-31 | Outpatient (CLI) | payer OTHER | LOC: SJCVC 14:12 | PROVIDERS: ATTEND Nurse Practitioner Adult Health | DX: R94.31 Abnormal electrocardiogram [ECG] [EKG] (principal); I45.10 Unspecified right bundle-branch block; I48.21 Permanent atrial fibrillation; I25.810 Atherosclerosis of coronary artery bypass graft(s) without angina pectoris; I36.1 Nonrheumatic tricuspid (valve) insufficiency; I34.0 Nonrheumatic mitral (valve) insufficiency; I10 Essential (primary) hypertension; E78.00 Pure hypercholesterolemia, unspecified; D68.59 Other primary thrombophilia; E11.9 Type 2 diabetes mellitus without complications; Z95.0 Presence of cardiac pacemaker; Z95.1 Presence of aortocoronary bypass graft; Z79.82 Long term (current) use of aspirin; Z79.899 Other long term (current) drug therapy ==

== ENCOUNTER → 2020-09-03 | Outpatient (CLI) | payer OTHER | LOC: SJCVCIMAG 11:12 | PROVIDERS: ATTEND Internal Medicine Cardiovascular Disease | DX: I08.8 Other rheumatic multiple valve diseases (principal); I27.20 Pulmonary hypertension, unspecified; I11.9 Hypertensive heart disease without heart failure; I49.3 Ventricular premature depolarization; I45.2 Bifascicular block; I48.91 Unspecified atrial fibrillation; I25.10 Atherosclerotic heart disease of native coronary artery without angina pectoris; I70.1 Atherosclerosis of renal artery; I42.9 Cardiomyopathy, unspecified; Z79.899 Other long term (current) drug therapy ==

== ENCOUNTER → 2020-10-19 | Outpatient (CLI) | payer OTHER | LOC: SJCVC 10:46 | PROVIDERS: ATTEND Internal Medicine Cardiovascular Disease | DX: R94.31 Abnormal electrocardiogram [ECG] [EKG] (principal); I45.10 Unspecified right bundle-branch block; I48.21 Permanent atrial fibrillation; I25.810 Atherosclerosis of coronary artery bypass graft(s) without angina pectoris; E78.00 Pure hypercholesterolemia, unspecified; I08.1 Rheumatic disorders of both mitral and tricuspid valves; I10 Essential (primary) hypertension; R42 Dizziness and giddiness; R55 Syncope and collapse; R06.02 Shortness of breath; Z95.1 Presence of aortocoronary bypass graft; Z79.899 Other long term (current) drug therapy; Z88.8 Allergy status to other drugs, medicaments and biological substances ==

== ENCOUNTER → 2020-11-10 | Outpatient (CLI) | payer OTHER | LOC: SJCVC 14:07 | PROVIDERS: ATTEND Internal Medicine Cardiovascular Disease | DX: I25.810 Atherosclerosis of coronary artery bypass graft(s) without angina pectoris (principal); E11.9 Type 2 diabetes mellitus without complications; I10 Essential (primary) hypertension; I48.91 Unspecified atrial fibrillation; E78.5 Hyperlipidemia, unspecified; Z95.1 Presence of aortocoronary bypass graft; Z79.899 Other long term (current) drug therapy; Z87.19 Personal history of other diseases of the digestive system ==

== ENCOUNTER → 2021-01-20 | Outpatient (CLI) | payer OTHER | LOC: SJCVC 11:06 | PROVIDERS: ATTEND Internal Medicine Cardiovascular Disease | DX: R94.31 Abnormal electrocardiogram [ECG] [EKG] (principal); I45.2 Bifascicular block; I25.810 Atherosclerosis of coronary artery bypass graft(s) without angina pectoris; I48.21 Permanent atrial fibrillation; I36.1 Nonrheumatic tricuspid (valve) insufficiency; I34.0 Nonrheumatic mitral (valve) insufficiency; I10 Essential (primary) hypertension; E78.00 Pure hypercholesterolemia, unspecified; Z79.899 Other long term (current) drug therapy; Z88.8 Allergy status to other drugs, medicaments and biological substances ==